=== PATIENT | male | born 1950 | race Caucasian/White ===

== ENCOUNTER 2016-07-02 14:57 | Emergency (ER) | payer OTHER ==
[2016-07-02 15:08] VITALS: BP 104/58; PULSE 87; RESP 18; TEMP 100; O2SAT 93
[2016-07-02] MEDS ORDERED: IPRATROPIUM/ALBUTEROL 3 ML DEYVIAL ONE (15:19)
[2016-07-02] MEDS ORDERED: OFLOXACIN 0.3% SOLN PREPACK OPHT.BTL TAKEHOME ONE (15:29)
[2016-07-02] MEDS ORDERED: IPRATROPIUM/ALBUTEROL 3 ML DEYVIAL IH ONE (15:29)
[2016-07-02] MEDS ORDERED: OFLOXACIN 0.3% 5ML OPHT DROPS EACHEYE ONE (15:29)
--- NOTE | 2016-07-02 15:35 | UCPHY ---
H & P Time Seen by Provider: 07/02/16 15:29 Patient Type: Established HPI/ROS: HPI Eye irritation, chest congestion. 67-year-old male by private vehicle. This patient reports that since he has had irritated red eyes. Worse on the left side versus the right side. He reports having a crusty discharge when he wakes up in the morning. He denies any eye pain or change in vision. No significant lid swelling. No foreign body sensation. No photophobia. He also reports having a dry cough and what he describes as chest congestion since Sunday. This has been accompanied with chills. Reports that he recently returned from a trip to [place] and there are lots of sick people with chest cold in his group. ROS: Constitutional: As above. No weakness. Eyes: No discharge. No changes in vision. ENT: No sore throat. No nasal congestion or rhinorrhea. Respiratory: As above. No shortness of breath. Cardiac: No chest pain, no palpitations. Gastrointestinal: No abdominal pain, no vomiting, no diarrhea. Genitourinary: No hematuria. No dysuria or increased frequency with urination. Musculoskeletal: No back pain. No neck pain. No myalgias or arthralgias. Skin: No rashes. Neurological: No headache. No focal weakness or altered sensation. Past medical history: Reactive airway disease. He is on Qvar as an inhaler currently. He does have albuterol at home but has not used this in some time. Social history: Here by himself. Physical Exam: General Appearance: Alert, no distress. This patient is responding to questions appropriately and in full sentences. This patient appears well- hydrated and well-nourished. Eyes: Pupils equal and round no pallor or injection. Mild scleral injection and inflammation involving the medial canthus left eye. The cornea is clear. ENT, Mouth: Mucous membranes are moist. The pharyngeal tissues are unremarkable. No edema or swelling. No asymmetry suggestive of abscess. No erythema or exudates. Respiratory: There are no retractions, lungs are clear to auscultation with good air movement bilaterally. Cardiovascular: Regular rate and rhythm. No murmur. Neurological: Motor sensory function is grossly intact. Cranial nerves are normal. Gait is normal. Skin: Warm and dry, no rashes. Musculoskeletal: Neck is supple and nontender. Extremities are symmetrical. All joints range without pain or impingement. Psychiatric: No agitation. No depression. Database: EKG: Imaging: Chest x-ray PA and lateral; the cardiac mediastinal silhouette is unremarkable. Probable left perihilar infiltrate. No acute cardiopulmonary disease process noted otherwise. Interpreted by me. Procedures: Emergency department course: After my evaluation he was sent for a chest x-ray. He was started on an albuterol/Atrovent nebulizer treatment. He was given ofloxacin ophthalmic drops to both eyes. Vital signs were reviewed. He is borderline febrile at 37.8. Room air pulse oximetry is 93% in triage. 4:15 p.m., results of chest x-ray discussed with staff radiologist Dr. Miguel Montenegro. He agrees this is likely a infiltrate as noted above on chest x- ray. I also discussed the patient's previous imaging studies with Dr. Montenegro. Dr. Montenegro's concern regarding the stability of the patient's pulmonary nodules and need for follow-up CT will be discussed with the patient. 4:20 p.m., patient re-evaluated. Discussed results of chest x-ray. Probable left middle lung field infiltrate on chest x-ray discussed. Patient given 750 mg of oral Levaquin in the urgent care for treatment of pneumonia. He will be prescribed this medication for an additional 8 days. He is to follow up with his primary care physician, Dr. Jimmy Cannon for re-evaluation in 2-3 days. I also discussed the importance of a follow-up CT scan in 6-8 weeks as recommended by the radiologist to determine if his pulmonary nodules seen on his previous CT are stable. He told me that he just had a CT about a month ago through another source outside of the [facility] and this was stable. He stated he would discuss this however with his primary care physician Dr. Jimmy Cannon. Return to urgent care instructions were discussed with him. All of his questions were answered. He was discharged in good condition. Differential Diagnosis: The differential diagnosis on this patient includes but is not limited to viral upper respiratory infection, viral versus bacterial conjunctivitis, pneumonia. This represents a partial list of diagnoses considered. These considerations are based on history, physical exam, past history, reassessment and diagnostic testing. Smoking Status: Never smoked Constitutional: Initial Vital Signs Temperature (C) 37.8 C 07/02/16 15:04 Heart Rate 87 07/02/16 15:04 Respiratory Rate 18 07/02/16 15:04 Blood Pressure 104/58 L 07/02/16 15:04 O2 Sat (%) 93 07/02/16 15:04 O2 Delivery Mode Room Air Allergies/Adverse Reactions: erythromycin base Allergy (Verified 07/02/16 15:03) Penicillins Allergy (Verified 07/02/16 15:03) Home Medications: Medication Instructions Recorded Albuterol 07/02/16 Ambien 07/02/16 Flonase Nasal [place] 07/02/16 Ketoconazole 2% [Nizoral 2% Cream 60 gm TP AD #0 cream 07/02/16 (*)] Qvar 07/02/16 Synthroid 07/02/16 levOFLOXACIN [levAQUIN (*)] 750 mg PO DAILY #8 tab 07/02/16 Medical Decision Making - Data Points Medications Given: Discontinued Medications Albuterol/Ipratropium (Duoneb) 3 ml IH EDNOW ONE Stop: 07/02/16 15:30 Last Admin: 07/02/16 15:31 Dose: 3 ml Ofloxacin (Ocuflox 0.3%) 1 drops EACHEYE EDNOW ONE Stop: 07/02/16 15:30 Last Admin: 07/02/16 15:41 Dose: Not Given Ofloxacin (Ocuflox 0.3% Opht Drops Prepack) 1 btl TAKEHOME EDNOW ONE Stop: 07/02/16 15:30 Last Admin: 07/02/16 15:42 Dose: 1 btl Departure - Departure Disposition: Home, Routine, Self-Care Clinical Impression: Conjunctivitis, Pneumonia Condition: Good Instructions: Conjunctivitis (ED), Pneumonia (ED) Additional Instructions: Read and follow provided instructions. Follow-up with your primary care physician, Dr. Jimmy Cannon, in 1-2 days for re-evaluation. It is also important that you arrange for a repeat CT scan of your chest through Dr. Cannon in 6-8 weeks for evaluation of pulmonary nodules that were seen on your previous CT scan about a year ago. Take medication as prescribed. Take antibiotic for likely left sided pneumonia through entire course of treatment even if your feeling better. Albuterol inhaler: 1-2 puffs every 2-4 hours as needed for cough, chest tightness, chest congestion. Ofloxacin ophthalmic: Day 1 into 1-2 drops to each eye every 4 hours then days 3 through 7, 1-2 drops to each eye every 6 hours or 4 times daily. Return to the emergency department for worsening symptoms, difficulty breathing , high fever or other serious concerns. Referrals: Jimmy Cannon MD [Primary Care Provider] - As per Instructions Prescriptions: Ketoconazole 2% [Nizoral 2% Cream (*)] 60 gm TP AD #0 cream levOFLOXACIN [levAQUIN (*)] 750 mg PO DAILY #8 tab - PQRS PQRS Measurement: 134: Depression screening and followup, PRIME MD-PHQ2 (12 years and older) Over the last 2 weeks, how often have you been bothered by any of the following problems? 1. Feeling down, depressed, or hopeless? 2. Little interest or pleasure in doing things? Answered no to both questions. 130: Documentation of medications. Reviewed all patient medications, doses, route and frequency. 226: Do you smoke? No. 47: 65 and older: Advanced care planning. Patient designates surrogate decision maker as family. 51: 18 years old and older with diagnosis of COPD, spirometry performance. NA 52: 18 years old and older with COPD and symptoms of COPD or FEV1<60% predicted prescribed a B Agonist. NA
--- NOTE | 2016-07-02 16:19 | DX ---
Chest, PA and Lateral Views, 3 Views Total - July 02, 2016, at 3:19 p.m. Clinical History: 65-year-old male with a cough and chest congestion. Rule out pneumonia. Comparison Studies: Chest radiography dated August 07, 2015, and unenhanced CT imaging of the chest dated August 24, 2015. Findings: In the interim, there has been development of a left perihilar infiltrate, which extends a nteriorly on the lateral view. This likely represents an area of pneumonia; however, appropriate anti biotic therapy is recommended and repeat radiography to assure resolution is recommended. The patient did have a chest CT scan on August 24, 2015, and follow up was recommended. The patient reportedly smo ked over 40 years ago. It may be worthwhile to consider follow-up chest CT imaging after antibiotic t herapy in 6 to 8 weeks so as to compare previously described tiny pulmonary nodules. The heart size i s normal. The trachea is midline. The osseous structures are age-appropriate. Impression: Interim development of an anterior left upper lobe perihilar infiltrate, most consistent with a pneumonia. Recommendation: Following appropriate antibiotic therapy, follow-up CT imaging in 6 to 8 weeks is re commended to compare tiny pulmonary nodules previously seen on a CT exam of August 24, 2015. I discussed these findings and recommendations with Dr. Main Foster at 4:10 p.m. on July 02, 2016.
== END 2016-07-02 16:23 | disposition home or self-care (01) ==
LOC: CED 14:57
DX: H10.9 Unspecified conjunctivitis (principal); J18.9 Pneumonia, unspecified organism
CPT/HCPCS: 71020-PO; 99215-PO; G0463-PO

== ENCOUNTER 2017-09-06 14:56 | Inpatient (IN) | payer OTHER ==
[2017-09-06] MEDS ORDERED: IPRATROPIUM/ALBUTEROL 3 ML DEYVIAL IH ONE (15:25)
--- NOTE | 2017-09-06 15:42 | EDPHY ---
H & P Stated Complaint: cough started sunday, fever started yesterday, [place], body aches Time Seen by Provider: 09/06/17 15:00 HPI/ROS: Chief Complaint: Cough, fatigue, shortness of breath HPI: 66-year-old male with a history of asthma and hypothyroidism presenting with several days of nonproductive cough. Cough became worse yesterday productive of greenish sputum. Patient has had increasing fatigue in general malaise for the last 24 hr. States that any time he takes a deep breath he has a coughing fit. He has not been using his usual rescue inhalers because he finds he can't take a deep breath. No pain with deep breathing. Primarily is complaining of general fatigue. Low-grade fevers at home with chills. Some nausea with no significant vomiting. No diarrhea. No abdominal pain. No chest pain. ROS: 10 point Review of Systems is negative except as noted in the HPI. PMH: Asthma, hypothyroidism Social History: No smoking, no alcohol, no recreational drug use Family History: non-contributory Physical Exam: Gen: Awake, Alert, No Distress HEENT: Nose: no rhinorrhea Eyes: PERRLA, EOMI Mouth: Moist mucosa Neck: Supple, no JVD Chest: nontender, diminished breath sounds bilaterally secondary to poor inspiratory effort, mild diffuse expiratory wheeze Heart: S1, S2 normal, no murmur Abd: Soft, non-tender, no guarding Back: no CVA tenderness, no midline tenderness Ext: no edema, non-tender Skin: no rash Neuro: CN II-XII intact, Sensation grossly intact, Strength 5/5 in bilateral upper and lower extremities - Medical/Surgical History Hx Asthma: Yes Other PMH: hypothyroidism, asthma, - Social History Smoking Status: Never smoked Constitutional: Initial Vital Signs Temperature (C) 37.9 C 09/06/17 15:01 Heart Rate 86 09/06/17 15:01 Respiratory Rate 18 09/06/17 15:01 Blood Pressure 126/83 H 09/06/17 15:01 O2 Sat (%) 89 L 09/06/17 15:01 O2 Delivery Mode Nasal Cannula O2 (L/minute) 2 Allergies/Adverse Reactions: erythromycin base Allergy (Verified 09/06/17 15:00) Penicillins Allergy (Verified 09/06/17 15:00) Home Medications: Medication Instructions Recorded Albuterol 07/02/16 Ambien 07/02/16 Flonase Nasal [place] 07/02/16 Ketoconazole 2% [Nizoral 2% Cream 60 gm TP AD #0 cream 07/02/16 (*)] Qvar 07/02/16 Synthroid 07/02/16 levOFLOXACIN [levAQUIN (*)] 750 mg PO DAILY #8 tab 07/02/16 Medical Decision Making - Diagnostics Imaging Results: Imaging Impressions Chest X-Ray 09/06/17 15:16 Impression: Left lower lobe airspace consolidation compatible with pneumonia.. ED Course/Re-evaluation: 66-year-old male with a history of asthma, hypoxic with oxygen saturations 88% on room air after DuoNeb. Patient has left lower lobe airspace disease given his oxygen saturations and comorbidities patient will have an IV placed, IV antibiotics admit to the hospital for further care. I have discussed with Dr. Burroughs, hospitalist. He will admit to his service for further care. - Data Points Laboratory Results: Laboratory Results 09/06/17 15:54 09/06/17 09/06/17 09/06/17 15:54 15:54 15:15 WBC 17.85 10^3/uL H 10^3/uL (3.80-9.50) RBC 4.70 10^6/uL 10^6/uL (4.40-6.38) Hgb 13.9 g/dL g/dL (13.7-17.5) Hct 40.9 % % (40.0-51.0) MCV 87.0 fL fL (81.5-99.8) MCH 29.6 pg pg (27.9-34.1) MCHC 34.0 g/dL g/dL (32.4-36.7) RDW 12.1 % % (11.5-15.2) Plt Count 238 10^3/uL 10^3/uL (150-400) MPV 8.7 fL fL (8.7-11.7) Neut % (Auto) 77.5 % H % (39.3-74.2) Lymph % (Auto) 14.5 % L % (15.0-45.0) [place] % (Auto) 7.1 % % (4.5-13.0) Eos % (Auto) 0.1 % L % (0.6-7.6) Baso % (Auto) 0.2 % L % (0.3-1.7) Nucleat RBC Rel Count 0.0 % % (0.0-0.2) Absolute Neuts (auto) 13.85 10^3/uL H 10^3/uL (1.70-6.50) Absolute Lymphs (auto) 2.59 10^3/uL 10^3/uL (1.00-3.00) Absolute Monos (auto) 1.27 10^3/uL H 10^3/uL (0.30-0.80) Absolute Eos (auto) 0.01 10^3/uL L 10^3/uL (0.03-0.40) Absolute Basos (auto) 0.03 10^3/uL 10^3/uL (0.02-0.10) Absolute Nucleated RBC 0.00 10^3/uL 10^3/uL (0-0.01) Immature Gran % 0.6 % % (0.0-1.1) Immature Gran # 0.10 10^3/uL 10^3/uL (0.00-0.10) Sodium Pending Potassium Pending Chloride Pending Carbon Dioxide Pending Anion Gap Pending BUN Pending Creatinine Pending Estimated GFR Pending Glucose Pending Calcium Pending Influenza A,B Rapid NEGATIVE FOR FLU (NEGATIVE) Medications Given: Discontinued Medications Albuterol/Ipratropium (Duoneb) 3 ml IH EDNOW ONE Stop: 09/06/17 15:26 Last Admin: 09/06/17 15:29 Dose: 3 ml Sodium Chloride (Ns) 1,000 mls @ 0 mls/hr IV EDNOW ONE; Wide Open PRN Reason: Protocol Stop: 09/06/17 15:55 Last Admin: 09/06/17 15:56 Dose: 1,000 mls Departure - Departure Disposition: [facility] Clinical Impression: Pneumonia, Asthma Condition: Fair Referrals: NONE *PRIMARY CARE P,. [Primary Care Provider] - As per Instructions
[2017-09-06] MEDS ORDERED: NS 1,000 ML IV ONE (15:54)
[2017-09-06 16:04] LABS: PLATELET COUNT 238 10^3/uL (150-400)
[2017-09-06] MEDS ORDERED: oxyCODONE IR 5 MG TAB PO PRN (16:48)
[2017-09-06] MEDS ORDERED: ONDANSETRON 4 MG/2 ML VIAL IVP PRN (16:48)
[2017-09-06] MEDS ORDERED: ONDANSETRON DISINTEGRATING 4 MG TAB PO PRN (16:48)
[2017-09-06] MEDS ORDERED: ACETAMINOPHEN 325 MG TAB PO PRN (16:48)
[2017-09-06] MEDS ORDERED: ALBUTEROL 3 ML DEYVIAL IH PRN (16:48)
--- NOTE | 2017-09-06 16:58 | PDGENHP ---
History and Physical - Chief Complaint SOB, Chills - History of Present Illness 66-year-old male with a history of asthma and hypothyroidism presented to the E.D with several days of nonproductive cough. Cough became worse yesterday productive of greenish sputum. Patient has had increasing fatigue in general malaise for the last 24 hr. States that any time he takes a deep breath he has a coughing fit. He has not been using his usual rescue inhalers because he finds he can't take a deep breath. No pain with deep breathing. Low-grade fevers at home with chills. Some nausea with no significant vomiting. No diarrhea. No abdominal pain. No chest pain. IN the E.D, CXR shows Left sided infiltrate He was given Levaquin and NS-1Liter PMH: Asthma, hypothyroidism Social History: No smoking, no alcohol, no recreational drug use Family History: non-contributory Labs/Studies: -Leukocytosis -Left sided infiltrate on CXR, personally reviewed -negative influenza History Information - Allergies/Home Medication List Allergies/Adverse Reactions: erythromycin base Allergy (Verified 09/06/17 18:57) Swelling/neck,face,throat Penicillins Allergy (Verified 09/06/17 18:57) SWELLING Home Medications: Aspirin [Aspirin 325 mg (*)] 162 mg PO DAILY 09/06/17 [Last Taken 09/06/17] Beclomethasone Qvar 80 [Qvar 80 Redihaler (*)] 2 inh IH BID 09/06/17 [Last Taken Unknown] Fluticasone Nasal [Flonase Nasal [place] (RX)] 2 sprays NASAL HS 09/06/17 [Last Taken Unknown] Levothyroxine [Synthroid 50 mcg (*)] 50 mcg PO DAILY06 09/06/17 [Last Taken ] Montelukast Sodium [Singulair 10 mg (*)] 10 mg PO DAILY@1800 09/06/17 [Last Taken 09/05/17] Zolpidem Tartrate 10 mg PO HS 09/06/17 [Last Taken 09/05/17] I have personally reviewed and updated: medical history, social history - Social History Smoking Status: Never smoked Review of Systems Review of Systems: ROS: 10pt was reviewed & negative except for what was stated in HPI & below Physical Exam Physical Exam: Temp Pulse Resp BP Pulse Ox 37.9 C 92 18 117/69 92 09/06/17 15:01 09/06/17 15:54 09/06/17 15:54 09/06/17 15:54 09/06/17 15:54 Constitutional: no apparent distress Eyes: PERRL, EOMI Ears, Nose, Mouth, Throat: hearing normal, dry mucous membranes Cardiovascular: regular rate and rhythym, No edema Respiratory: expiratory wheeze Gastrointestinal: normoactive bowel sounds Genitourinary: no bladder fullness Skin: warm Musculoskeletal: full muscle strength Neurologic: AAOx3 Psychiatric: interacting appropriately, not anxious, not encephalopathic, thought process linear Lymph, Heme, Immunologic: No petechiae Lab Data & Imaging Review 09/06/17 15:54 09/06/17 15:54 WBC 17.85 10^3/uL (3.80-9.50) H 09/06/17 15:54 RBC 4.70 10^6/uL (4.40-6.38) 09/06/17 15:54 Hgb 13.9 g/dL (13.7-17.5) 09/06/17 15:54 Hct 40.9 % (40.0-51.0) 09/06/17 15:54 MCV 87.0 fL (81.5-99.8) 09/06/17 15:54 MCH 29.6 pg (27.9-34.1) 09/06/17 15:54 MCHC 34.0 g/dL (32.4-36.7) 09/06/17 15:54 RDW 12.1 % (11.5-15.2) 09/06/17 15:54 Plt Count 238 10^3/uL (150-400) 09/06/17 15:54 MPV 8.7 fL (8.7-11.7) 09/06/17 15:54 Neut % (Auto) 77.5 % (39.3-74.2) H 09/06/17 15:54 Lymph % (Auto) 14.5 % (15.0-45.0) L 09/06/17 15:54 [place] % (Auto) 7.1 % (4.5-13.0) 09/06/17 15:54 Eos % (Auto) 0.1 % (0.6-7.6) L 09/06/17 15:54 Baso % (Auto) 0.2 % (0.3-1.7) L 09/06/17 15:54 Nucleat RBC Rel Count 0.0 % (0.0-0.2) 09/06/17 15:54 Absolute Neuts (auto) 13.85 10^3/uL (1.70-6.50) H 09/06/17 15:54 Absolute Lymphs (auto) 2.59 10^3/uL (1.00-3.00) 09/06/17 15:54 Absolute Monos (auto) 1.27 10^3/uL (0.30-0.80) H 09/06/17 15:54 Absolute Eos (auto) 0.01 10^3/uL (0.03-0.40) L 09/06/17 15:54 Absolute Basos (auto) 0.03 10^3/uL (0.02-0.10) 09/06/17 15:54 Absolute Nucleated RBC 0.00 10^3/uL (0-0.01) 09/06/17 15:54 Immature Gran % 0.6 % (0.0-1.1) 09/06/17 15:54 Immature Gran # 0.10 10^3/uL (0.00-0.10) 09/06/17 15:54 Sodium 135 mEq/L (135-145) 09/06/17 15:54 Potassium 3.8 mEq/L (3.5-5.2) 09/06/17 15:54 Chloride 102 mEq/L (97-110) 09/06/17 15:54 Carbon Dioxide 23 mEq/l (22-31) 09/06/17 15:54 Anion Gap 10 mEq/L (8-16) 09/06/17 15:54 BUN 13 mg/dL (7-23) 09/06/17 15:54 Creatinine 1.0 mg/dL (0.7-1.3) 09/06/17 15:54 Estimated GFR > 60 09/06/17 15:54 Glucose 115 mg/dL (70-100) H 09/06/17 15:54 Calcium 8.6 mg/dL (8.5-10.4) 09/06/17 15:54 Influenza A,B Rapid NEGATIVE FOR FLU (NEGATIVE) 09/06/17 15:15 Assessment & Plan Assessment: #Possible Sepsis, meets criteria based on reported fever/chills, mild tachycardia, Leukocytosis, Source of infection Lungs #Acute Hypoxic Respiratory Failure, does not typically require supplemental O2 #Left sided pneumonia, likely community acquired pneumonia #Asthma with acute exacerbation #Dehydration #Hypothyroidism Plan: Admit additional IVF cont Levaquin Check Blood Cultures Check serum lactate scheduled and prn nebs start IV steroids. Can decrease dose and/or change to PO tomorrow continue appropriate home meds Lovenox for DVT proph total critical care time in this patient who meets Sepsis criteria, has left sided pneumonia, and is dehydrated is 65 minutes
[2017-09-06] MEDS ORDERED: NS 1,000 ML IV SCH (17:00)
[2017-09-06] MEDS ORDERED: ZOLPIDEM TARTRATE 5 MG TAB PO PRN (19:26)
[2017-09-06] MEDS: IPRATROPIUM/ALBUTEROL 3 ML DEYVIAL IH SCH (20:43)
[2017-09-06] MEDS: BECLOMETHASONE QVAR 80 REDIHALER 120 INH/10.6 GM MDI IH SCH (20:56)
[2017-09-06] MEDS ORDERED: FLUTICASONE NASAL 120 SPRAYS/16 GM MDI EACHNARE SCH (21:00)
[2017-09-06] MEDS ORDERED: BENZONATATE 100 MG CAP PO PRN (22:21)
[2017-09-06] MEDS: GUAIFENESIN/DM 10 ML UDCUP PO PRN (22:29)
[2017-09-07] MEDS: methylPREDNISolone SOD SUCC 125 MG/2 ML VIAL IVP SCH ×3 (00:23→13:03)
[2017-09-07] MEDS: IPRATROPIUM/ALBUTEROL 3 ML DEYVIAL IH SCH ×2 (04:46→12:16)
[2017-09-07 05:34] LABS: PLATELET COUNT 229 10^3/uL (150-400)
[2017-09-07] MEDS ORDERED: LEVOTHYROXINE 50 MCG TAB PO SCH (06:00)
[2017-09-07 07:42] VITALS: BP 109/62; O2SAT 92
[2017-09-07] MEDS ORDERED: ENOXAPARIN 40 MG/0.4 ML SYR SC SCH (09:00)
[2017-09-07] MEDS ORDERED: ASPIRIN 81 MG CHEWABLE TAB PO SCH (09:00)
[2017-09-07] MEDS: GUAIFENESIN/DM 10 ML UDCUP PO PRN (10:05)
--- NOTE | 2017-09-07 10:26 | PDMN ---
Medical Necessity Medical necessity: M160 sepsis and other febrile illness A-2 days: fever/chills , tachycardia, leukocytosis, M282 cPNA, with asthma, O2 req keeps sats > 90% 2L ( 88% RA) ,anticipate > 2 midnights ongoing med nec care, monitoring, eval and tx. -IV fluids, Levaquin, Solumedrol,
--- NOTE | 2017-09-07 11:34 | ASMTCMCOM ---
CM Note CM Note Notes: Spoke w/RN, anticipate pt will dc home w/support of when medically stable. No therapies ordered, CM available for any changes. DC Plan: Independent Date Signed: 09/07/2017 11:34 AM Electronically Signed By:Margarita Stapleton RN
[2017-09-07 11:46] VITALS: TEMP 97.6
[2017-09-07] MEDS: BECLOMETHASONE QVAR 80 REDIHALER 120 INH/10.6 GM MDI IH SCH (12:15)
[2017-09-07 12:30] VITALS: PULSE 82; RESP 14
--- NOTE | 2017-09-07 15:51 | GDS ---
[f rep st] DISCHARGE SUMMARY DISCHARGE DIAGNOSES: 1. Sepsis secondary to a pulmonary source. 2. Acute hypoxic respiratory failure secondary to reactive airways exacerbation and community-acquir ed pneumonia. 3. Community-acquired pneumonia. 4. Hypothyroidism. HISTORY OF PRESENT ILLNESS: A 66-year-old male with a history of asthma, who presents to the emergen cy department with shortness of breath, chills, and lethargy. For details of patient's initial prese ntation, please see the history and physical dated 09/06/2017. CONSULTATIVE SERVICES: None. HOSPITAL COURSE BY ISSUE: 1. Community-acquired pneumonia. Patient had blood cultures drawn in the emergency department which show no growth at the time of his disposition. He was empirically treated with IV levofloxacin and had improvement in his symptoms overnight. On the day of disposition, his hypoxia has resolved and h e is being sent home to complete a 7-day course of oral levofloxacin. 2. Sepsis. Patient presented with tachycardia and leukocytosis. Patient was aggressively fluid res uscitated. On day of disposition, his leukocytosis has improved from 18 to 15. The tachycardia has resolved. He remains afebrile and will again complete the above antibiotics. 3. Reactive airways exacerbation. Patient was wheezing and hypoxic at presentation. He received IV steroids and will be discharged with a prednisone burst to include three additional days of high-dos e prednisone then stop. The patient has been instructed to continue his Qvar inhaler and follow in t he outpatient setting with his primary care. MEDICATIONS AT THE TIME OF DISPOSITION: Please reference the med rec printed on 09/07/2017. PENDING STUDIES: Blood cultures drawn on 09/06/2017, which are preliminary. No growth to date. FOLLOWUP APPOINTMENTS: Primary care provider in the next 7-10 days for post-disposition followup. TIME SPENT: I spent greater than 30 minutes in the planning and coordination of this discharge. /[id number]
[2017-09-07] MEDS ORDERED: MONTELUKAST SODIUM 10 MG TAB PO SCH (18:00)
== END 2017-09-07 14:23 | disposition home or self-care (01) | DRG 871 ==
LOC: CED 14:56 → CEDHOLD 16:16 → OBSVTOIN 16:48 → F3E 18:30
PROVIDERS: ADMIT Family Medicine; ATTEND Family Medicine
DX: A41.9 Sepsis, unspecified organism (principal); J96.01 Acute respiratory failure with hypoxia; J18.8 Other pneumonia, unspecified organism; J45.901 Unspecified asthma with (acute) exacerbation; E03.9 Hypothyroidism, unspecified; Z88.0 Allergy status to penicillin; E86.0 Dehydration
CPT/HCPCS: 71046-PO; 80048-PO; 83605-PO; 85025-PO; 87400-PO; 96365; J1650; J1956; J2930